=== PATIENT | male | born 1965 | race Caucasian/White ===

== ENCOUNTER 2017-07-11 18:18 | Emergency (ER) | payer OTHER ==
[~2017-07-11] VITALS: Ht 180.3 cm; Wt 73.0 kg
[2017-07-11 19:11] LABS: HEMATOCRIT 43.1 % (38.0-50.0); MCH 27.2 PG (29.0-34.0); MCHC 31.8 G/DL (30.0-36.0); MCV 85.5 FL (86-99); MEAN PLAT.VOLUME 12.1 uM^3 (9.0-12.4); PLATELET COUNT 175 K/uL (156-360); RBC DIS.WIDTH-CV 15.3 % (11.8-14.6); RBC DIS.WIDTH-SD 47.8 % (39-53); RED BLOOD COUNT 5.04 M/uL (4.00-5.50); WHITE BLOOD COUNT 6.2 K/uL (4.1-10.2)
[2017-07-11 19:19] LABS: CHLORIDE 102 mEq/L (99-109); POTASSIUM 4.4 mEq/L (3.7-5.4); SODIUM 140 mEq/L (136-147)
[2017-07-11 19:21] LABS: GLUCOSE 105 mg/dL (70-99)
[2017-07-11 19:23] LABS: ANION GAP 10 MEQ/L (2-14); TOTAL BILIRUBIN 0.8 mg/dL (0.0-1.0)
[2017-07-11 19:25] LABS: ALKALINE PHOSPHATASE 53 IU/L (3-129); GFR ESTIMATE (CALCULATED) > 59 mL/min/
[2017-07-11 19:26] LABS: UREA NITROGEN (BUN) 18 mg/dL (9-23)
[2017-07-11] MEDS ORDERED: OXAYDO5 MG PO (21:06)
[2017-07-11] MEDS ORDERED: CLEOCIN300 MG PO (21:06)
[2017-07-11 21:46] VITALS: BP 107/86
== END 2017-07-11 21:46 | disposition home or self-care (01) ==
LOC: EME 18:18
DX: L03.115 Cellulitis of right lower limb (principal); Z86.718 Personal history of other venous thrombosis and embolism; F17.200 Nicotine dependence, unspecified, uncomplicated; Z88.0 Allergy status to penicillin
CPT/HCPCS: 73630; 80053; 85027; 93971; 99281; 99283